=== PATIENT | male | born 1990 | race Caucasian/White ===

== ENCOUNTER 2019-10-23 16:30 | Emergency (ER) | payer OTHER ==
[2019-10-23 16:48] VITALS: BP 150/99; PULSE 101; TEMP 99.9; BMI 26.6
[2019-10-23] MEDS ORDERED: ACETAMINOPHEN 500 MG TABLET (FP) PO ONE (17:01)
[2019-10-23] MEDS ORDERED: ACETAMINOPHEN 500 MG TABLET (FP) ONE (17:07)
--- NOTE | 2019-10-23 17:56 | PDOC ---
History of Present Illness - General Chief Complaint: Cold Symptoms Stated Complaint: FEVER/COUGH Time Seen by Provider: 10/23/19 16:49 - History of Present Illness Initial Comments: 10/23/19 17:54 29-year-old male without comorbidities presents for flulike symptoms x4 days Past History - Past Medical History Allergies/Adverse Reactions: Allergies Allergy/AdvReac Type Severity Reaction Status Date / Time No Known Allergies Allergy Verified 10/23/19 16:42 COPD: No CHF: Yes Diabetes: Yes HTN: Yes Hypercholesterolemia: Yes - Immunization History Immunization Up to Date: Yes - Psycho Social/Smoking Cessation Hx Smoking History: Never smoked Information on smoking cessation initiated: No Hx Alcohol Use: No Drug/Substance Use Hx: No Review of Systems - Review of Systems Constitutional: No: Fever HEENTM: Yes: Nose Congestion Respiratory: Yes: Cough *Physical Exam - Vital Signs Last Vital Signs Temp Pulse Resp BP Pulse Ox 99.9 F H 101 H 16 150/99 97 10/23/19 16:41 10/23/19 16:41 10/23/19 16:41 10/23/19 16:41 10/23/19 16:41 - Physical Exam 10/23/19 17:55 GENERAL: The patient is awake, alert, and fully oriented, in no acute distress. HEAD: Normal with no signs of trauma. EYES: sclera anicteric, conjunctiva clear. ENT: Ears normal tympanic membranes normal oropharynx clear uvula midline NECK: Normal range of motion LUNGS: Breath sounds equal, clear to auscultation bilaterally. No wheezes, and no crackles. HEART: S1 and S2 without murmur, rub or gallop. ABDOMEN: Soft, nontender, normoactive bowel sounds. No guarding, no rebound. No masses. EXTREMITIES: Normal range of motion, no edema. No clubbing or cyanosis. No cords, erythema, or tenderness. NEUROLOGICAL: Cranial nerves II through XII grossly intact. Normal speech, normal gait. PSYCH: Normal mood, normal affect. SKIN: Warm, Dry, normal turgor, no rashes or lesions noted. ED Treatment Course - Medications Given in the ED: ED Medications Discontinued Medications Generic Name Dose Route Start Last Admin Trade Name Freq PRN Reason Stop Dose Admin Acetaminophen 1,000 mg 10/23/19 17:01 10/23/19 17:10 Tylenol - PO 10/23/19 17:02 1,000 mg ONCE ONE Administration Medical Decision Making - Medical Decision Making 10/23/19 17:55 Flu swab negative most likely viral upper respiratory infection follow-up PCP discussed supportive care. Discharge - Discharge Information Problems reviewed: Yes Clinical Impression/Diagnosis: Viral URI with cough Condition: Stable Disposition: HOME - Admission No - Follow up/Referral Referrals: Nel Armijo MD [Staff Physician] - - Patient Discharge Instructions Patient Printed Discharge Instructions: DI for Viral Upper Respiratory Infection -- Adult Additional Instructions: Influenza swab was negative. Return to the emergency room for worsening symptoms. Tylenol Motrin as directed for pain. And fever. Follow-up with your primary care physician without fail in 1 to 2 days for further evaluation and treatment options. - Post Discharge Activity
== END 2019-10-23 18:30 | disposition home or self-care (01) ==
LOC: JERFT 16:30
DX: J06.9 Acute upper respiratory infection, unspecified (principal); B97.89 Other viral agents as the cause of diseases classified elsewhere; I11.0 Hypertensive heart disease with heart failure; I50.9 Heart failure, unspecified; E78.00 Pure hypercholesterolemia, unspecified; E11.9 Type 2 diabetes mellitus without complications
CPT/HCPCS: 87804; 99281-25

== ENCOUNTER 2019-10-29 21:05 | Emergency (ER) | payer OTHER ==
[2019-10-29 21:18] VITALS: BMI 29.0
--- NOTE | 2019-10-29 21:59 | PDOC ---
History of Present Illness - General Chief Complaint: Shortness of Breath Stated Complaint: SHORTNESS OF BREATH Time Seen by Provider: 10/29/19 21:28 History Source: Patient Exam Limitations: Clinical Condition - History of Present Illness Initial Comments: 10/29/19 21:54 Patient with no significant past medical history present with complaint of one- week history of persistent cough with yellow sputum, body aches, runny nose, fever, chills and diarrhea. Patient was seen 5 days ago in this ED for same symptoms so was diagnosed with a viral syndrome and flu test done was negative. Patient report has been taking [id number] medication without improvement and feels like he might have bronchitis or pneumonia due to persistent cough.. Patient reported has been using Patel's cold and flu medication today Is this a multiple visit Asthma Patient?: No Timing/Duration: 1 week Past History - Past Medical History Allergies/Adverse Reactions: Allergies Allergy/AdvReac Type Severity Reaction Status Date / Time No Known Allergies Allergy Verified 10/23/19 16:42 Home Medications: Ambulatory Orders Azithromycin [Zithromax 250mg Tablets -] 250 mg PO UTDICT #6 tab 10/29/19 Benzonatate [Tessalon Pearls -] 100 mg PO Q8H PRN #21 capsule 10/29/19 Methylprednisolone [Medrol Dose Iker] 4 mg PO ASDIR #21 tablet 10/29/19 Montelukast Na [Singulair -] 10 mg PO DAILY #7 tablet 10/29/19 Cardiac Disorders: Yes (heart murmur/OI) COPD: No CHF: Yes Diabetes: Yes HTN: Yes Hypercholesterolemia: Yes - Immunization History Immunization Up to Date: Yes - Psycho Social/Smoking Cessation Hx Smoking History: Never smoked Hx Alcohol Use: No Drug/Substance Use Hx: No Review of Systems - Review of Systems Able to Perform ROS?: Yes Is the patient limited Telugu proficient: No Constitutional: Yes: Chills, Fever, Malaise HEENTM: Yes: Symptoms Reported, See HPI, Nose Congestion. No: Eye Pain, Blurred Vision, Tearing, Recent change in vision, Double Vision, Cataracts, Ear Pain, Ocular Prothesis, Ear Discharge, Nose Pain, Tinnitus, Nose Bleeding, Hearing Loss, Throat Pain, Throat Swelling, Mouth Pain, Dental Problems, Difficulty Swallowing, Mouth Swelling, Other Respiratory: Yes: Symptoms reported, See HPI, Cough. No: Orthopnea, Shortness of Breath, SOB with Exertion, SOB at Rest, Stridor, Wheezing, Productive cough, Hemoptysis, Other Cardiac (ROS): No: Symptoms Reported, See HPI, Chest Pain, Edema, Irregular Heart Rate, Lightheadedness, Palpitations, Syncope, Chest Tightness, Other ABD/GI: Yes: Diarrhea. No: Symptoms Reported, See HPI, Constipated, Nausea, Poor Appetite, Vomiting, Indigestion, Abdominal cramping : No: Burning, Discharge, Frequency Musculoskeletal: No: Symptoms Reported Integumentary: No: Symptoms Reported, Rash Neurological: No: Symptoms reported, Dizziness All Other Systems: Reviewed and Negative *Physical Exam - Vital Signs Last Vital Signs Temp Pulse Resp BP Pulse Ox 99.1 F 120 H 19 147/92 97 10/29/19 21:14 10/29/19 21:14 10/29/19 21:14 10/29/19 21:14 10/29/19 21:14 - Physical Exam 10/29/19 21:59 GENERAL: Well developed, well nourished. Awake and alert. No acute distress. HEENT: Normocephalic, atraumatic. PERRLA, EOMI. No conjunctival pallor. Sclera are non-icteric. Moist mucous membranes. Oropharynx is clear. NECK: Supple. Full ROM. CARDIOVASCULAR: Regular rate and rhythm. No murmurs, rubs, or gallops. Distal pulses are 2+ and symmetric. PULMONARY: No evidence of respiratory distress. Mild expiratory wheeze diffusely. No rales or rhonchi. ABDOMINAL: Soft. Non-tender. Non-distended. No rebound or guarding. No organomegaly. Normoactive bowel sounds. MUSCULOSKELETAL Normal range of motion at all joints. SKIN: Warm and dry. Normal capillary refill. No rashes. No cyanosis. NEUROLOGICAL: Alert, awake, appropriate. Gait is normal without ataxia. PSYCHIATRIC: Cooperative. Good eye contact. Appropriate mood General Appearance: Yes: Nourished, Appropriately Dressed. No: Apparent Distress ED Treatment Course - RADIOLOGY Radiology Studies Ordered: Category Date Time Status CHEST PA & LAT [RAD] Stat Radiology 10/29/19 21:32 Ordered Medical Decision Making - Medical Decision Making 10/29/19 21:57 Patient with no significant past medical history present with complaint of one- week history of persistent cough with yellow sputum, body aches, runny nose, fever, chills and diarrhea. Patient was seen 5 days ago in this ED for same symptoms so was diagnosed with a viral syndrome and flu test done was negative. Patient report has been taking [id number] medication without improvement and feels like he might have bronchitis or pneumonia due to persistent cough.. Patient reported has been using Patel's cold and flu medication today Exam was significant for persistent cough to her exam with mild expiratory wheeze. Patient afebrile now. Symptoms likely bronchitis versus viral syndrome. Chest x-ray ordered to rule out acute chest pathology 10/29/19 22:25 Chest x-ray shows no acute infiltrate but given patient symptoms are persisting productive cough with fever, patient be discharged home on Z-Iker antibiotics for bronchitis with Tessalon Perles as needed for cough and Medrol Iker for bronchospasm with rd manager follow-up Discharge - Discharge Information Problems reviewed: Yes Clinical Impression/Diagnosis: Cough in adult URI (upper respiratory infection) Qualifiers: URI type: unspecified URI Qualified Code(s): J06.9 - Acute upper respiratory infection, unspecified Acute bronchitis Qualifiers: Bronchitis organism: unspecified organism Qualified Code(s): J20.9 - Acute bronchitis, unspecified Condition: Stable Disposition: HOME - Admission No - Additional Discharge Information Prescriptions: Azithromycin [Zithromax 250mg Tablets -] 250 mg PO UTDICT #6 tab Benzonatate [Tessalon Pearls -] 100 mg PO Q8H PRN #21 capsule PRN Reason: Cough Methylprednisolone [Medrol Dose Iker] 4 mg PO ASDIR #21 tablet Montelukast Na [Singulair -] 10 mg PO DAILY #7 tablet - Follow up/Referral Referrals: Rafita Rogers MD [Staff Physician] - - Patient Discharge Instructions Patient Printed Discharge Instructions: DI for Acute Bronchitis Additional Instructions: Take prescribed medication as prescribed for cough and symptoms and finish prescribed antibiotics. Increase fluid intake. Follow-up referred rd manager if symptoms persist for more than 4 days - Post Discharge Activity
[2019-10-29] MEDS ORDERED: ALBUTEROL SO4 2.5/IPRATROPIUM 0.5 INH SOL 3 ML VIAL.NEB. NEB ONE ×3 (22:03→22:11)
[2019-10-29] MEDS ORDERED: guaiFENesin/CODEINE 10 ML UNIT-DOSE CUPS PO ONE (22:03)
[2019-10-29] MEDS ORDERED: DEXAMETHASONE LIQUID 0.5 MG/5 ML PO ONE (22:05)
[2019-10-29] MEDS ORDERED: DEXAMETHASONE SOD PHOSPHATE 10 MG/1 ML VIAL ONE ×2 (22:09→22:11)
[2019-10-29] MEDS ORDERED: guaiFENesin/CODEINE 5 ML UNIT-DOSE CUPS PO ONE (22:09)
[2019-10-29] MEDS ORDERED: guaiFENesin/D-METHORPHAN HB 10 ML UNIT-DOSE CUPS ONE (22:11)
[2019-10-29 22:48] VITALS: BP 132/70; PULSE 98; TEMP 98.2
== END 2019-10-29 22:43 | disposition home or self-care (01) ==
LOC: JER 21:05
PROC: 3E0F7GC Introduction of Other Therapeutic Substance into Respiratory Tract, Via Natural or Artificial Opening (ICD-10-PCS; principal; 2019-10-29)
DX: J20.9 Acute bronchitis, unspecified (principal); J06.9 Acute upper respiratory infection, unspecified; I10 Essential (primary) hypertension; I50.9 Heart failure, unspecified; E11.9 Type 2 diabetes mellitus without complications; E78.00 Pure hypercholesterolemia, unspecified; R01.1 Cardiac murmur, unspecified
CPT/HCPCS: 71046-TC-FY; 94640; 99283-25

== ENCOUNTER 2019-11-30 04:58 | Emergency (ER) | payer OTHER ==
--- NOTE | 2019-11-30 05:33 | PDOC ---
Attending Attestation - Resident Resident Name: BharataspenYassine - ED Attending Attestation I have performed the following: I have examined & evaluated the patient, The case was reviewed & discussed with the resident, I agree w/resident's findings & plan - HPI HPI: 11/30/19 21:03 see resident hpi - Physicial Exam PE: 11/30/19 21:03 see resident exam - Medical Decision Making 11/30/19 21:04 , 29-year-old male with cough Chest x-ray shows no acute abnormality EKG unremarkable Plan for DC dexamethasone administered as well as nebulizer treatment with relief in the emergency department
[2019-11-30] MEDS ORDERED: DEXAMETHASONE 4 MG TABLET (FP) PO ONE (05:39)
[2019-11-30] MEDS ORDERED: ALBUTEROL SO4 2.5/IPRATROPIUM 0.5 INH SOL 3 ML VIAL.NEB. NEB ONE ×2 (05:39→05:44)
[2019-11-30] MEDS ORDERED: ACETAMINOPHEN 325 MG TABLET (FP) PO ONE (05:39)
--- NOTE | 2019-11-30 05:43 | PDOC ---
History of Present Illness - General Chief Complaint: Cold Symptoms Stated Complaint: COUGH Time Seen by Provider: 11/30/19 05:31 History Source: Patient Exam Limitations: No Limitations - History of Present Illness Initial Comments: 11/30/19 05:49 Patient is a 29M with history of OI here today complaining of cough. Patient states that he woke up this morning feeling like he couldn't breathe with cough. Denies history of asthma, but was diagnosed wit 'bronchitis' approximately one month prior and discharged with montelukast, prednisone and azithromycin with instructions to follow up with pulmonology. Patient never followed up. Patient also reports minor headache and pain in his right upper side, almost in axilla. Pain is worse with raising arm and palpation. Endorses decreased sleep due to baby, born yesterday. Past History - Past Medical History Allergies/Adverse Reactions: Allergies Allergy/AdvReac Type Severity Reaction Status Date / Time No Known Allergies Allergy Verified 11/30/19 05:39 Home Medications: Ambulatory Orders Azithromycin [Zithromax 250mg Tablets -] 250 mg PO UTDICT #6 tab 10/29/19 Benzonatate [Tessalon Pearls -] 100 mg PO Q8H PRN #21 capsule 10/29/19 Methylprednisolone [Medrol Dose Iker] 4 mg PO ASDIR #21 tablet 10/29/19 Montelukast Na [Singulair -] 10 mg PO DAILY #7 tablet 10/29/19 Albuterol Sulfate Inhaler - [Ventolin HFA Inhaler -] 1 - 2 inh PO QID #1 inhaler 11/30/19 Cardiac Disorders: Yes (heart murmur/OI) COPD: No CHF: Yes Diabetes: Yes HTN: Yes Hypercholesterolemia: Yes - Immunization History Immunization Up to Date: Yes - Psycho Social/Smoking Cessation Hx Smoking History: Never smoked Hx Alcohol Use: No Drug/Substance Use Hx: No Review of Systems - Review of Systems Able to Perform ROS?: Yes Comments:: 11/30/19 05:51 GENERAL/CONSTITUTIONAL: No fever or chills. No weakness. HEAD, EYES, EARS, NOSE AND THROAT: No change in vision. No sore throat. CARDIOVASCULAR: No chest pain +shortness of breath RESPIRATORY: +cough, no wheezing, or hemoptysis. GASTROINTESTINAL: No nausea, vomiting, diarrhea or constipation. GENITOURINARY: No dysuria, frequency, or change in urination. MUSCULOSKELETAL: No joint or muscle swelling or pain. No neck or back pain. SKIN: No rash NEUROLOGIC: No headache, vertigo, loss of consciousness, or change in strength/ sensation. ENDOCRINE: No increased thirst. No abnormal weight change HEMATOLOGIC/LYMPHATIC: No anemia, easy bleeding, or history of blood clots. ALLERGIC/IMMUNOLOGIC: No hives or skin allergy. *Physical Exam - Vital Signs Last Vital Signs Temp Pulse Resp BP Pulse Ox 98.7 F 82 18 118/96 100 11/30/19 05:00 11/30/19 05:00 11/30/19 05:00 11/30/19 05:00 11/30/19 05:40 - Physical Exam 11/30/19 05:51 GENERAL: Awake, alert, and fully oriented, in no acute distress HEAD: No signs of trauma, normocephalic, atraumatic EYES: PERRLA, EOMI, sclera anicteric, conjunctiva clear ENT: Auricles normal inspection, hearing grossly normal, nares patent, oropharynx erythematous without exudates. Moist mucosa NECK: Normal ROM, supple, no lymphadenopathy, JVD, or masses LUNGS: No distress, speaks full sentences, clear to auscultation bilaterally, coughs with deep inspiration HEART: Regular rate and rhythm, normal S1 and S2, no murmurs, rubs or gallops, peripheral pulses normal and equal bilaterally. ABDOMEN: Soft, nontender, normoactive bowel sounds. No guarding, no rebound. No masses EXTREMITIES: Normal inspection, Normal range of motion, no edema. No clubbing or cyanosis. NEUROLOGICAL: Cranial nerves II through XII grossly intact. Normal speech, normal gait, no focal sensorimotor deficits SKIN: Warm, Dry, normal turgor, no rashes or lesions noted. ED Treatment Course - RADIOLOGY Radiology Studies Ordered: Category Date Time Status CHEST PA & LAT [RAD] Stat Radiology 11/30/19 05:40 Ordered Medical Decision Making - Medical Decision Making 11/30/19 05:52 Patient is 29M here today with cough, right side pain. Vitals stable. DDx includes, but is not limited to: asthma ex (cough variant), pneumonia, rib fracture, pneumothorax. PERC negative. Will treat with dexamethasone, duonebs, tylenol. Will evaluate further with ekg and cxr. Will stress need of follow up to patient. 11/30/19 06:[address] No [address] elevations/depressions. Normal axis. Normal intervals. No significant t wave abnormalities. Patient improved after duoneb. Lungs clear, no longer coughing, suspect cough type asthma CXR pending. 11/30/19 06:39 CXR negative. Will discharge home. Return precautions given. Discharge - Discharge Information Problems reviewed: Yes Clinical Impression/Diagnosis: Cough in adult Condition: Good Disposition: HOME - Admission No - Additional Discharge Information Prescriptions: Albuterol Sulfate Inhaler - [Ventolin HFA Inhaler -] 1 - 2 inh PO QID #1 inhaler - Follow up/Referral Referrals: Rona Hoang MD [Primary Care Provider] - [facility] [place] [Provider Group] - Patient Discharge Instructions Patient Printed Discharge Instructions: DI for Cough -- Adult Additional Instructions: Please follow up with your PCP regarding your cough, it is consistent with asthma induced cough. Please return if you have any new, worsening or concerning symptoms, especially worsening shortness of breath, and chest pain. - Post Discharge Activity
[2019-11-30] MEDS ORDERED: DEXAMETHASONE 4 MG TABLET (FP) ONE (05:44)
[2019-11-30] MEDS ORDERED: ACETAMINOPHEN 325 MG TABLET (FP) ONE (05:44)
[2019-11-30 06:12] VITALS: BP 118/96; PULSE 82; TEMP 98.7
--- NOTE | 2019-11-30 11:00 | EKG ---
Test Reason : Blood Pressure : / mmHG Vent. Rate : 076 BPM Atrial Rate : 076 BPM P-R Int : 134 ms QRS Dur : 112 ms QT Int : 366 ms P-R-T Axes : 050 065 044 degrees QTc Int : 411 ms NORMAL SINUS RHYTHM NORMAL ECG NO PREVIOUS ECGS AVAILABLE Confirmed by Lencho Willams MD ([id number]) on 11/30/2019 11:00:14 AM Referred By: Confirmed By:Lencho Willams MD
== END 2019-11-30 06:50 | disposition home or self-care (01) ==
LOC: JER 04:58
PROC: 3E0F7GC Introduction of Other Therapeutic Substance into Respiratory Tract, Via Natural or Artificial Opening (ICD-10-PCS; principal; 2019-11-30)
DX: R05 Cough (principal)
CPT/HCPCS: 71046-TC-FY; 93005; 93010; 94640; 99282-25

== ENCOUNTER 2020-08-19 14:50 | Emergency (ER) | payer OTHER ==
[2020-08-19 15:00] VITALS: BP 133/94; PULSE 85; TEMP 98; BMI 29.2
--- OUTSIDE RECORDS SUMMARY | 2020-08-19 15:10 | XMS ---
:1990 Author Organization [facility] Support Name Relationship Address Phone UE, UNEMPLOYED Unavailable Unavailable Unavailable UE Unavailable Unavailable Unavailable [employer] [address] [place] [address] [place] [address] Re-disclosure Warning The records that you are about to access may contain information from federally- assisted alcohol or drug abuse programs. If such information is present, then the following federally mandated warning applies: This information has been disclosed to you from records protected by federal confidentiality rules (42 CFR part 2). The federal rules prohibit you from making any further disclosure of this information unless further disclosure is expressly permitted by the written consent of the person to whom it pertains or as otherwise permitted by 42 CFR part 2. A general authorization for the release of medical or other information is NOT sufficient for this purpose. The Federal rules restrict any use of the information to criminally investigate or prosecute any alcohol or drug abuse patient.The records that you are about to access may contain highly sensitive health information, the redisclosure of which is protected by Article 27-F of the [facility] Public Health law. If you continue you may haveaccess to information: Regarding HIV / AIDS; Provided by facilities licensed or operated by the [facility] Office of Mental Health; or Provided by the [facility] Office for People With Developmental Disabilities. If such information is present, then the following [facility] mandated warning applies: This information has been disclosed to you from confidential records which are protected by state law. State law prohibits you from making any further disclosure of this information without the specific written consent of the person to whom it pertains, or as otherwise permitted by law. Any unauthorized further disclosure in violation of state law may result in a fine or long term sentence or both. A general authorization for the release of medical or other information is NOT sufficient authorization for further disclosure. Insurance Providers Payer name Policy type Policy ID Covered Covered green party's Policy P shawn / Coverage green party ID relationship to Trejo Inf ormation type trejo MARVA [id number] SP [id number] HEALTH NON CAP MEDICAID [id number] SP [id number] Results ID Date Data Source [id number] 06/06/2020 10:21:00 AM EDT [facility] Name Value Range Interpretation Code Description Data [place] rce(s) Supporting Document(s ) SARS-COV-2 [facility] QL CHAYA+PROBE This lab was ordered by [address] [place] [address] and reported by [facility]. ID Date Data Source [id number] 04/03/2020 12:00:00 AM EDT [facility] Name Value Range Interpretation Description Data Sup porting Code Source(s) Document(s ) SARS [facility] CORONAVIRUS 2 RNA This lab was ordered by [facility] and reported by [facility]. Procedure
[2020-08-19] MEDS ORDERED: IBUPROFEN 600 MG TABLET (FP) PO ONE ×2 (15:42→15:45)
--- NOTE | 2020-08-19 15:53 | PDOC ---
History of Present Illness - General Chief Complaint: Injury Stated Complaint: HURT TOES Time Seen by Provider: 08/19/20 15:06 History Source: Patient Exam Limitations: Clinical Condition - History of Present Illness Initial Comments: 08/19/20 15:55 Patient with past medical history of osteogenesis imperfecta presented with complaint of left little toe pain status post slipping on a rug and accidentally hit toe on a wall an hour prior to arrival. Patient did not take anything for pain. Denies any other symptoms Is this a multiple visit Asthma Patient?: No Timing/Duration: 1-3 hours Past History - Medical History Allergies/Adverse Reactions: Allergies Allergy/AdvReac Type Severity Reaction Status Date / Time No Known Allergies Allergy Verified 08/19/20 15:00 Home Medications: Ambulatory Orders Ibuprofen 600 mg PO Q8H PRN #16 tablet 08/19/20 Cardiac Disorders: Yes (heart murmur/OI) COPD: No CHF: Yes Diabetes: Yes HTN: Yes Hypercholesterolemia: Yes - Immunization History Td Vaccination: Yes TDAP Vaccination: Yes Immunization Up to Date: Yes - Psycho-Social/Smoking History Smoking History: Current every day smoker Have you smoked in the past 12 months: Yes Number of Cigarettes Smoked Daily: 20 Information on smoking cessation initiated: No 'Breaking Loose' booklet given: 04/03/20 - Substance Abuse Hx (Audit-C & DAST Scrn) How often the patient has a drink containing alcohol: Never Score: In Men: 4 or > Positive; In Women: 3 or > Positive: 0 Screen Result (Pos requires Nsg. Audit-10AR): Negative Review of Systems - Review of Systems Able to Perform ROS?: Yes Is the patient limited Hungarian proficient: No Constitutional: No: Chills, Fever, Malaise HEENTM: No: Symptoms Reported Respiratory: No: Symptoms reported Cardiac (ROS): No: Symptoms Reported Musculoskeletal: Yes: Symptoms Reported, See HPI, Joint Pain (left little toe), Joint Swelling (left little toe), Muscle Pain (left little toe pain) Integumentary: Yes: Symptoms Reported, See HPI, Change in Color (left little toe) Neurological: No: Symptoms reported All Other Systems: Reviewed and Negative *Physical Exam - Vital Signs Last Vital Signs Temp Pulse Resp BP Pulse Ox 98 F 85 18 133/94 100 08/19/20 14:51 08/19/20 14:51 08/19/20 14:51 08/19/20 14:51 08/19/20 14:51 - Physical Exam 08/19/20 15:57 GENERAL: Well developed, well nourished. Awake and alert. No acute distress. PULMONARY: No evidence of respiratory distress. MUSCULOSKELETAL : moderate tenderness with bruising to left little toe with no visible deformity. No tenderness to rest of the foot. SKIN: Warm and dry. Normal capillary refill. Mild ecchymosis and swelling to phalange and MCP of left little toe. No swelling no ecchymosis rest of foot or toes. NEUROLOGICAL: Alert, awake, appropriate. No motor deficits in the lower extremities. Gait is normal without ataxia. PSYCHIATRIC: Cooperative. Good eye contact. Appropriate mood and affect. General Appearance: Yes: Nourished, Appropriately Dressed. No: Apparent Distress ED Treatment Course - RADIOLOGY Radiology Studies Ordered: Category Date Time Status TOE(S) LEFT [RAD] Stat Radiology 08/19/20 15:07 Taken - Medications Given in the ED: ED Medications Discontinued Medications Generic Name Dose Route Start Last Admin Trade Name Freq PRN Reason Stop Dose Admin Ibuprofen 600 mg 08/19/20 15:42 08/19/20 15:47 Motrin - PO 08/19/20 15:43 600 mg ONCE ONE Administration Medical Decision Making - Medical Decision Making 08/19/20 15:56 Patient with past medical history of osteogenesis imperfecta presented with complaint of left little toe pain status post slipping on a rug and accidentally hit toe on a wall an hour prior to arrival. Patient did not take anything for pain. Denies any other symptoms Exam significant for moderate tenderness with bruising to left little toe with no visible deformity. No tenderness to rest of the foot. X-ray of left toes shows fracture of proximal phalange of left little toe. Left little toe roman taped to fourth toe. Motrin 600 mg p.o. ordered for pain. Postop shoe given. Patient stable for discharge on Motrin as needed for pain with advised to do warm soaks to foot with podiatry follow-up Discharge - Discharge Information Problems reviewed: Yes Clinical Impression/Diagnosis: Toe fracture, left Qualifiers: Encounter type: initial encounter Toe: lesser toe Fracture type: closed Phalanx: distal Fracture alignment: displaced Qualified Code(s): S92.532A - Displaced fracture of distal phalanx of left lesser toe(s), initial encounter for closed fracture Condition: Stable Disposition: HOME - Admission No - Additional Discharge Information Prescriptions: Ibuprofen 600 mg PO Q8H PRN #16 tablet PRN Reason: pain - Follow up/Referral Referrals: Nita Hope DPM [Staff Physician] - - Patient Discharge Instructions Patient Printed Discharge Instructions: DI for Toe Fracture Additional Instructions: X-ray of left toes shows distal fracture of the toe. Do roman tape as discussed to help support toe. Do warm soaks with Epson salt water to help with swelling. Take prescribed Motrin as needed for pain. Follow-up referring podiatry as needed - Post Discharge Activity
== END 2020-08-19 16:15 | disposition home or self-care (01) ==
LOC: JERFT 14:50
DX: S92.532A Displaced fracture of distal phalanx of left lesser toe(s), initial encounter for closed fracture (principal)
CPT/HCPCS: 73660-TC-LT-FY; 99283-25

== ENCOUNTER 2021-03-03 22:04 | Emergency (ER) | payer OTHER ==
[2021-03-03 22:10] VITALS: BP 137/95; PULSE 89; TEMP 98.5; BMI 30.1
[2021-03-03] MEDS ORDERED: DEXAMETHASONE SOD PHOSPHATE 10 MG/1 ML VIAL IM ONE (22:17)
[2021-03-03] MEDS ORDERED: KETOROLAC TROMETHAMINE 30 MG/1 ML VIAL IM ONE (22:17)
[2021-03-03] MEDS ORDERED: DEXAMETHASONE SOD PHOSPHATE 10 MG/1 ML VIAL ONE ×2 (22:21→22:25)
[2021-03-03] MEDS ORDERED: KETOROLAC TROMETHAMINE 30 MG/1 ML VIAL ONE (22:21)
[2021-03-03] MEDS ORDERED: IBUPROFEN 600 MG TABLET (FP) PO ONE ×2 (22:25)
[2021-03-03] MEDS ORDERED: PSEUDOEPHEDRINE HCL 60 MG TABLET PO ONE (22:58)
[2021-03-03] MEDS ORDERED: PSEUDOEPHEDRINE HCL 60 MG TABLET ONE (23:08)
== END 2021-03-03 23:19 | disposition home or self-care (01) ==
LOC: JERFT 22:04
PROC: 3E0233Z Introduction of Anti-inflammatory into Muscle, Percutaneous Approach (ICD-10-PCS; principal; 2021-03-03)
DX: J02.9 Acute pharyngitis, unspecified (principal); H92.01 Otalgia, right ear
CPT/HCPCS: 87880; 99284-25; J1100

== ENCOUNTER 2021-11-18 19:16 | Emergency (ER) | payer OTHER ==
[2021-11-18 19:23] VITALS: BP 137/89; PULSE 87; TEMP 98.3; BMI 31.5
[2021-11-18] MEDS ORDERED: IBUPROFEN 600 MG TABLET (FP) PO ONE ×2 (20:10→20:11)
== END 2021-11-18 21:43 | disposition home or self-care (01) ==
LOC: JER 19:16 → JERFT 19:16
DX: S93.501A Unspecified sprain of right great toe, initial encounter (principal); S93.402A Sprain of unspecified ligament of left ankle, initial encounter; W01.0XXA Fall on same level from slipping, tripping and stumbling without subsequent striking against object, initial encounter; X50.0XXA Overexertion from strenuous movement or load, initial encounter
CPT/HCPCS: 73110-TC-LT-FY; 73110-TC-RT-FY; 73130-TC-LT-FY; 73130-TC-RT-FY; 73610-TC-LT-FY; 73630-TC-LT; 99285-25

== ENCOUNTER 2023-03-14 11:59 | Emergency (ER) | payer OTHER ==
[2023-03-14 12:17] VITALS: BP 149/106; PULSE 109; TEMP 98.1; BMI 30.9
== END 2023-03-14 16:00 | disposition home or self-care (01) ==
LOC: JERFT 11:59
DX: S69.92XA Unspecified injury of left wrist, hand and finger(s), initial encounter (principal); M25.532 Pain in left wrist; R22.32 Localized swelling, mass and lump, left upper limb; W18.30XA Fall on same level, unspecified, initial encounter
CPT/HCPCS: 73110-TC-LT-FY; 73130-TC-LT-FY; 99283-25